=== PATIENT | male | born 1990 | race Caucasian/White ===

== ENCOUNTER → 2016-06-26 | Outpatient (CLI) | payer BC ==
[~2016-06-26] MED LIST: DEPAKOTE500 MG PO; SEROQUEL 2525 MG/TAB PO
== END ==
LOC: BHSO 09:58
DX: F31.74 Bipolar disorder, in full remission, most recent episode manic (principal)

== ENCOUNTER → 2016-10-20 | Outpatient (CLI) | payer BC | LOC: BHSO 10:31 | DX: F31.74 Bipolar disorder, in full remission, most recent episode manic (principal) ==

== ENCOUNTER → 2017-11-15 | Outpatient (CLI) | payer BC | LOC: BHSO 09:21 | DX: F31.78 Bipolar disorder, in full remission, most recent episode mixed (principal) | CPT/HCPCS: G0463 ==